=== PATIENT | female | born 1980 | race Caucasian/White ===

== ENCOUNTER 2019-06-04 10:31 | Emergency (ER) | payer OTHER, MEDICAID ==
[~2019-06-04] VITALS: Ht 160 cm; Wt 55.8 kg
[2019-06-04 10:44] VITALS: BP_SYST 105
[2019-06-04] MEDS ORDERED: IBUPROFEN 800 MG TABLET PO ONE (10:45)
[2019-06-04] MEDS ORDERED: IPRATROPIUM/ALBUTEROL SULFATE 3 ML AMPUL.NEB (DUONEB) INH ONE (10:45)
[2019-06-04 11:43] VITALS: BP_SYST 105
== END 2019-06-04 11:43 ==
LOC: SED 10:31
DX: M25.561 Pain in right knee (principal); J40 Bronchitis, not specified as acute or chronic; F17.210 Nicotine dependence, cigarettes, uncomplicated; Z71.6 Tobacco abuse counseling; Z88.0 Allergy status to penicillin
CPT/HCPCS: 71045; 73564; 94640; 99283; J7620

== ENCOUNTER 2019-06-07 23:11 | Emergency (ER) | payer OTHER, MEDICAID ==
[~2019-06-07] VITALS: Ht 170.2 cm; Wt 62.6 kg
[2019-06-07 23:15] VITALS: BP_SYST 128
--- NOTE | 2019-06-07 23:15 | NUR ---
Patient to ER CHAIR for evaluation. Side rails up. Report given to AGAPITO KOVACS.
--- NOTE | 2019-06-07 23:16 | NUR ---
ER at bedside examining patient.
--- NOTE | 2019-06-07 23:20 | NUR ---
Pt DARLENE RAUSCH for a medical clearance. Pt is C/O Rt leg pain, denies any fall or trauma recently. Denies any other symptoms at this time. Will continue to monitor.
--- NOTE | 2019-06-07 23:30 | NUR ---
Blood glucose is 131.
--- NOTE | 2019-06-08 00:33 | NUR ---
Patient given written and verbal discharge instructions and verbalizes understanding. ER MD discussed with patient the results and treatment provided. Patient in stable condition. ID arm band removed. no Rx of given. Patient educated on pain management and to follow up with PMD. Pain Scale 0/10. Opportunity for questions provided and answered. Medication side effect fact sheet provided.
[2019-06-08 00:35] VITALS: BP_SYST 125
== END 2019-06-08 00:35 ==
LOC: SED 23:11
DX: G40.909 Epilepsy, unspecified, not intractable, without status epilepticus (principal); N39.0 Urinary tract infection, site not specified; E11.9 Type 2 diabetes mellitus without complications; Z88.0 Allergy status to penicillin
CPT/HCPCS: 82962; 99283